=== PATIENT | male | born 1945 | race Caucasian/White ===

== ENCOUNTER 2023-08-17 07:24 | Outpatient (CLI) | payer MEDICARE, BC ==
[~2023-08-17 07:24] MED LIST: CARCD120C PO; CHOL2000 PO; COLE1TAB4 PO; COU2.5T PO; COU3T PO; DOXY-8 PO; LOP25T PO; OMEP-84 PO; PSYL0.524 PO
[2023-08-17 07:57] LABS: BASOPHILS % (AUTO) 0.7 % (0-1); EOSINOPHILS # (AUTO) 0.1 X10'3 (0-0.9); HEMATOCRIT 42.1 % (42.0-52.0); HEMOGLOBIN 14.3 g/dl (14.0-17.9); LYMPHOCYTES # (AUTO) 1.1 X10'3 (1.1-4.8); LYMPHOCYTES % (AUTO) 17.6 % (21-51); MEAN CORPUSCULAR HEMOGLOBIN 30.7 PG (27.0-31.0); MEAN CORPUSCULAR VOLUME 90.4 FL (78-98); MEAN PLATELET VOLUME 6.9 FL (7.4-10.4); MONOCYTES # (AUTO) 0.6 X10'3 (0-0.9); MONOCYTES % (AUTO) 10.1 % (2-12); NEUTROPHILS # (AUTO) 4.3 X10'3 (1.8-7.7); NEUTROPHILS % (AUTO) 69.6 % (42-75); PLATELET COUNT 217 X10'3 (140-440); RED BLOOD COUNT 4.66 X10'6 (4.70-6.10); RED CELL DISTRIBUTION WIDTH 14.7 % (11.5-14.5); WHITE BLOOD COUNT 6.1 X10'3 (4.5-11.0)
[2023-08-17 08:16] LABS: ALANINE AMINOTRANSFERASE 16 U/L (12-78); ALBUMIN 3.7 G/DL (3.4-5.0); ALBUMIN/GLOBULIN RATIO 0.9 (1.1-1.5); ALKALINE PHOSPHATASE 86 IU/L (46-116); ANION GAP 10 (8-16); ASPARTATE AMINO TRANSFERASE 21 U/L (10-37); BILIRUBIN,TOTAL 0.6 MG/DL (0.1-1.0); BLOOD UREA NITROGEN 13 MG/DL (7-18); BUN/CREATININE RATIO 14.1 (10.0-20.0); CALCIUM 8.9 MG/DL (8.5-10.1); CHLORIDE 104 MMOL/L (99-107); CREATININE 0.92 MG/DL (0.60-1.10); GLUCOSE 109 MG/DL (70-104); POTASSIUM 3.5 MMOL/L (3.5-5.1); SODIUM 142 MMOL/L (135-145); TOTAL CARBON DIOXIDE 27.8 MMOL/L (24-32); TOTAL PROTEIN 7.6 G/DL (6.4-8.2); eGFR 80 ML/MIN
[2023-08-17 08:32] LABS: APTT 26 SECONDS (22-32); INR 1.1 INR; PROTHROMBIN TIME 11.4 SECONDS (9.0-12.0)
[2023-08-17] MEDS ORDERED: iohexol 350MG/ML 100ml bottle IV ONE (08:46)
== END 2023-08-17 23:59 | disposition home or self-care (01) ==
LOC: RAD 07:24
PROVIDERS: ATTEND Student in an Organized Health Care Education/Training Program
DX: I48.91 Unspecified atrial fibrillation (principal); I48.92 Unspecified atrial flutter; I25.10 Atherosclerotic heart disease of native coronary artery without angina pectoris
CPT/HCPCS: 36415; 75572; 80053; 85025; 85610; 85730; J3490; Q9967

== ENCOUNTER 2024-02-01 06:25 | Inpatient (IN) | payer MEDICARE, BC ==
[2024-01-24 10:07] LABS: EOSINOPHILS # (AUTO) 0.1 X10'3 (0-0.9); LYMPHOCYTES # (AUTO) 1.6 X10'3 (1.1-4.8); MONOCYTES # (AUTO) 0.6 X10'3 (0-0.9); PRE OP WHITE BLOOD COUNT 6.2 10'3 (4.8-10.8); RED CELL DISTRIBUTION WIDTH 14.1 % (11.5-14.5)
[2024-01-24 10:09] LABS: BASOPHILS % (AUTO) 0.6 % (0-1); LYMPHOCYTES % (AUTO) 25.9 % (21-51); MEAN CORPUSCULAR HEMOGLOBIN 32.1 PG (27.0-31.0); MEAN CORPUSCULAR HGB CONC 34.1 g/dL (33.0-36.5); MEAN CORPUSCULAR VOLUME 94.3 FL (78-98); MEAN PLATELET VOLUME 7.1 FL (7.4-10.4); MONOCYTES % (AUTO) 9.8 % (2-12); NEUTROPHILS # (AUTO) 3.9 X10'3 (1.8-7.7); NEUTROPHILS % (AUTO) 62.7 % (42-75); PRE OP HEMATOCRIT 44.7 % (42.0-52.0); PRE OP HEMOGLOBIN 15.2 g/dL (14.0-17.9); PRE OP PLATELET COUNT 224 X10'3 (140-440); RED BLOOD COUNT 4.74 X10'6 (4.70-6.10)
[2024-01-24 10:10] LABS: BILIRUBIN,URINE NEGATIVE (Neg); CLARITY,URINE SLIGHTLY CLOUDY (Clear); COLOR,URINE STRAW (Yellow); GLUCOSE, URINE NEGATIVE (Neg); KETONES,URINE NEGATIVE (Neg); LEUKOCYTE ESTERASE ,URINE MODERATE (Neg); NITRITES, URINE NEGATIVE (Neg); OCCULT BLOOD,URINE TRACE-INTACT (Neg); PH,URINE 6.5 (4.8-8.0); PROTEIN,URINE NEGATIVE (Neg); UROBILINOGEN,URINE 0.2 E.U/dL (0.2-1.0)
[2024-01-24 10:19] LABS: UA COLLECTION TYPE CLN CATCH MIDSTREAM
[2024-01-24 10:20] LABS: SQUAMOUS EPITHELIAL CELL,UR FEW /LPF (FEW)
[2024-01-24 10:21] LABS: BACTERIA,URINE 1+ /HPF (Neg); RBC,URINE 0-2 /HPF (0-2); WBC CLUMPS,URINE MANY /HPF (NEGATIVE)
[2024-01-24 10:25] LABS: PRE OP INR 1.2 INR
[2024-01-24 10:42] LABS: ALBUMIN 3.9 G/DL (3.4-5.0); ALBUMIN/GLOBULIN RATIO 0.9 (1.1-1.5); ALKALINE PHOSPHATASE 87 IU/L (46-116); BLOOD UREA NITROGEN 9 MG/DL (7-18); BUN/CREATININE RATIO 11.3 (10.0-20.0); CALCIUM 8.9 MG/DL (8.5-10.1); CHLORIDE 104 MMOL/L (99-107); PRE OP ALT 15 U/L (30-65); PRE OP ANION GAP 7 (8-16); PRE OP AST 14 U/L (10-37); PRE OP BILIRUB, TOTAL 0.7 MG/DL (0.0-1.0); PRE OP GLUCOSE 100 MG/DL (70-104); PRE OP SODIUM 142 MMOL/L (135-145); TOTAL CARBON DIOXIDE 30.6 MMOL/L (24-32); TOTAL PROTEIN 8.1 G/DL (6.4-8.2); eGFR > 90 ML/MIN
[2024-01-24 10:45] LABS: PRE OP POTASSIUM 3.3 MMOL/L (3.4-5.1)
[2024-02-01] VITALS (37 sets, daily range): BP systolic 128–168; BP diastolic 41–107; PULSE 16–142; RESP 8–16; TEMP 97.4–99; O2SAT 91–99
[~2024-02-01] VITALS: Ht 185.4 cm; Wt 102.1 kg
[~2024-02-01 06:25] MED LIST changes: +APIX5TAB3 PO; +BACL20TA PO; -CARCD120C PO; -CHOL2000 PO; +CHOL20002 PO; -COLE1TAB4 PO; -COU2.5T PO; -COU3T PO; +CYAN100097 PO; +DILT240C90 PO; -DOXY-8 PO; -LOP25T PO; +LOSA-416 PO; -OMEP-84 PO; +PANT20TA18 PO; +PRAV40TA3 PO; -PSYL0.524 PO; +cefazolin 2gm/D5W 100mL 100 ML IV ONE; +ondansetron/PF 4mg/2ml inj IV PRN
[2024-02-01 07:23] LABS: ISTAT ANION GAP 11 (8-12); ISTAT BUN 9 mg/dL (7-18); ISTAT CL 103 mmol/L (99-107); ISTAT CREATININE 0.7 mg/dL (0.8-1.3); ISTAT GLUCOSE 102 mg/dL (70-104); ISTAT HGB 15.3 g/dl (14.0-17.9); ISTAT Hct 45 %PCV (42-52); ISTAT IONIZED CALCIUM 1.17 mmol/L (1.03-1.32); ISTAT K 3.3 mmol/L (3.5-5.1); ISTAT NA 142 mmol/L (135-145); ISTAT TOTAL CO2 28 mmol/L (24-32); ISTAT eGFR > 90 ML/MIN; POC BUN/CREATININE RATIO 12.9 (5.4-32.0)
[2024-02-01] MEDS: ringers solution, lacted 1,000 ML IV SCH ×2 (07:23→10:19)
[2024-02-01] MEDS: vancomycin 1,500 MG in NS 300ml IV soln IV ONE (07:24)
[2024-02-01] MEDS: famotidine 20mg tablet PO ONE (07:30)
[2024-02-01] MEDS ORDERED: meperidine/PF 25mg/ml syringe IV PRN ×3 (08:00)
[2024-02-01] MEDS ORDERED: morphine 4 MG/ML inj SYRINge IV PRN (08:00)
[2024-02-01] MEDS ORDERED: proCHLORperazine 10 MG/2 ml inj IV PRN ×2 (08:00→09:45)
[2024-02-01] MEDS ORDERED: morphine 2 MG/ML inj. syringe IV PRN (08:00)
[2024-02-01] MEDS ORDERED: ondansetron/PF 4mg/2ml inj IV PRN ×2 (08:00→09:45)
[2024-02-01] MEDS ORDERED: LIDOcaine 1% (10mg/ml) 2ml vial ONE (08:12)
[2024-02-01] MEDS ORDERED: iohexol 350MG/ML 100ml bottle IV ONE (08:36)
[2024-02-01] MEDS ORDERED: LIDOcaine 1% 30ml preserv. free vial ONE (08:36)
[2024-02-01] MEDS ORDERED: propofol inj 20 ML IV ONE (08:40)
[2024-02-01] MEDS ORDERED: fentaNYL/PF 50MCG/1 ML 2ML syringe ONE (08:40)
[2024-02-01] MEDS ORDERED: midazolam 1 mg/ML 2ml injection ONE (08:40)
[2024-02-01] MEDS ORDERED: sevoflurane 250ml liquid IH ONE (08:41)
[2024-02-01] MEDS ORDERED: heparin 1,000unit/ml 10ml vial 10 ML ONE (08:56)
[2024-02-01] MEDS ORDERED: rocuronium 10mg/ml inj IV ONE (08:56)
[2024-02-01] MEDS ORDERED: dexamethasone sod phosphate 4mg/ml inj. ONE (09:06)
[2024-02-01] MEDS ORDERED: ondansetron/PF 4mg/2ml inj ONE (09:28)
[2024-02-01] MEDS ORDERED: neostigmine methylsulfate 1 MG/ML 10ml vial ONE (09:33)
[2024-02-01] MEDS ORDERED: glycopyrrolate 0.2mg/ml inj ONE (09:34)
[2024-02-01] MEDS ORDERED: potassium Cl 20 mEq SR tablet PO PRN (09:45)
[2024-02-01] MEDS ORDERED: docusate sod 100mg capsule PO PRN (09:45)
[2024-02-01] MEDS ORDERED: potassium CL 10mEq/100ml bag 100 ML IV PRN (09:45)
[2024-02-01] MEDS ORDERED: potassium Cl 20mEq/100mL bag 100 ML IV PRN (09:45)
[2024-02-01] MEDS ORDERED: potassium Cl 40MEQ/270ML bag 250 ML IV PRN (09:45)
[2024-02-01] MEDS ORDERED: magnesium 4gm in 100ml NS 100 ML IV PRN (09:45)
[2024-02-01] MEDS ORDERED: pantoprazole 40mg Tablet.DR PO PRN (09:45)
[2024-02-01] MEDS ORDERED: magnesium 2GM in 50ml NS 50 ML IV PRN (09:45)
[2024-02-01] MEDS ORDERED: diphenhydrAMINE 25mg capsule PO PRN (09:45)
[2024-02-01] MEDS ORDERED: ALPRAZolam 0.25mg tablet PO PRN (09:45)
[2024-02-01] MEDS: hydrALAZINE 20mg/ml inj. IV PRN (11:23)
[2024-02-01] MEDS: sod chloride 0.9% 10ml flush syringe IV SCH (16:00)
[2024-02-01] MEDS: diltiazem SR 60mg capsule (twice daily) PO SCH (16:12)
[2024-02-01] MEDS: diltiazem 30mg tablet PO ONE (17:00)
[2024-02-01] MEDS: labetalol 20mg/4ml (5mg/ml) syringe IV PRN (17:27)
[2024-02-01] MEDS: potassium Cl 40MEQ/1/2NS 520ml 520 ML IV PRN (19:00)
[2024-02-01] MEDS: normal saline 1000ml 1,000 ML IV SCH (19:45)
[2024-02-01] MEDS: apixaban 5mg tablet PO SCH (20:11)
[2024-02-01] MEDS: baclofen 10mg tablet PO SCH (20:12)
[2024-02-01] MEDS: losartan 50mg tablet PO SCH (20:12)
[2024-02-01] MEDS: pravastatin 40mg tablet PO SCH (20:13)
[2024-02-01] MEDS: acetaminophen 325mg tablet PO PRN (20:31)
[2024-02-02 02:00] VITALS: BP 153/86; PULSE 92; RESP 16; TEMP 97.4; O2SAT 95
[2024-02-02 06:58] LABS: BASOPHILS % (AUTO) 0.2 % (0-1); EOSINOPHILS % (AUTO) 0 % (0-6); HEMATOCRIT 43.2 % (42.0-52.0); HEMOGLOBIN 14.4 g/dl (14.0-17.9); LYMPHOCYTES # (AUTO) 0.8 X10'3 (1.1-4.8); LYMPHOCYTES % (AUTO) 5.9 % (21-51); MEAN CORPUSCULAR HEMOGLOBIN 31.5 PG (27.0-31.0); MEAN CORPUSCULAR HGB CONC 33.3 g/dL (33.0-36.5); MEAN CORPUSCULAR VOLUME 94.4 FL (78-98); MEAN PLATELET VOLUME 7.6 FL (7.4-10.4); MONOCYTES # (AUTO) 0.6 X10'3 (0-0.9); MONOCYTES % (AUTO) 4.8 % (2-12); NEUTROPHILS # (AUTO) 11.5 X10'3 (1.8-7.7); NEUTROPHILS % (AUTO) 89.1 % (42-75); PLATELET COUNT 205 X10'3 (140-440); RED BLOOD COUNT 4.58 X10'6 (4.70-6.10); RED CELL DISTRIBUTION WIDTH 14.1 % (11.5-14.5); WHITE BLOOD COUNT 12.9 X10'3 (4.5-11.0)
[2024-02-02 06:59] LABS: INR 1.2 INR; PROTHROMBIN TIME 12.5 SECONDS (9.0-12.0)
[2024-02-02 07:00] VITALS: BP 135/79; PULSE 96; RESP 21; TEMP 98.4; O2SAT 97
[2024-02-02 07:14] LABS: ALANINE AMINOTRANSFERASE 12 U/L (12-78); ALBUMIN 3.2 G/DL (3.4-5.0); ALBUMIN/GLOBULIN RATIO 0.9 (1.1-1.5); ALKALINE PHOSPHATASE 75 IU/L (46-116); ANION GAP 6 (8-16); ASPARTATE AMINO TRANSFERASE 14 U/L (10-37); BILIRUBIN,TOTAL 0.6 MG/DL (0.1-1.0); BLOOD UREA NITROGEN 14 MG/DL (7-18); BUN/CREATININE RATIO 17.1 (10.0-20.0); CALCIUM 8.4 MG/DL (8.5-10.1); CHLORIDE 105 MMOL/L (99-107); CREATININE 0.82 MG/DL (0.60-1.10); GLUCOSE 124 MG/DL (70-104); MAGNESIUM 2.1 MG/DL (1.5-2.4); POTASSIUM 4.1 MMOL/L (3.5-5.1); PRO BRAIN NATRIURETIC PEPTIDE 565 PG/ML (0-450); SODIUM 138 MMOL/L (135-145); TOTAL CARBON DIOXIDE 27.3 MMOL/L (24-32); TOTAL PROTEIN 6.8 G/DL (6.4-8.2); eCRCL 87 ML/MIN; eGFR > 90 ML/MIN
[2024-02-02 08:00] VITALS: RESP 16; O2SAT 96
[2024-02-02] MEDS: pantoprazole 40mg Tablet.DR PO SCH (09:28)
[2024-02-02] MEDS: cholecalciferol (vitamin D3) 1,000 unit (25mcg) tablet PO SCH (09:28)
[2024-02-02] MEDS: cyanocobalamin 500mcg tablet PO SCH (10:36)
[2024-02-02 11:00] VITALS: BP 151/74; PULSE 64; RESP 16; TEMP 97.9; O2SAT 97
== END 2024-02-02 18:08 | disposition home or self-care (01) | DRG 274 ==
LOC: PAS IN 06:25 → PCU 3S 18:00
PROVIDERS: ADMIT Student in an Organized Health Care Education/Training Program; ATTEND Student in an Organized Health Care Education/Training Program
PROC: B24BZZ4 Ultrasonography of Heart with Aorta, Transesophageal (ICD-10-PCS; 2024-02-01)
PROC: 03HY32Z Insertion of Monitoring Device into Upper Artery, Percutaneous Approach (ICD-10-PCS; 2024-02-01)
PROC: 02L73DK Occlusion of Left Atrial Appendage with Intraluminal Device, Percutaneous Approach (ICD-10-PCS; principal; 2024-02-01 08:41)
DX: I48.91 Unspecified atrial fibrillation (principal); Z00.6 Encounter for examination for normal comparison and control in clinical research program; I71.9 Aortic aneurysm of unspecified site, without rupture; G47.30 Sleep apnea, unspecified; E87.5 Hyperkalemia; I10 Essential (primary) hypertension; E78.5 Hyperlipidemia, unspecified; Z79.01 Long term (current) use of anticoagulants
CPT/HCPCS: 33340; 36415; 71045; 71046; 76937; 80047; 80053; 81001; 83735; 83880; 85025; 85347; 85610; 85730; 86885; 86900; 86901; 86920; 87081; 87088; 93005; 93308; 93312; 93325; A4618; A6258; A6449; C1758; C1760; C1889; C1893; G0378; J0360; J0690; J1100; J1644; J2250; J2405; J2704; J2710; J3010; J3370; J3480; J3490; J7030; J7040; J7120; Q9967

== ENCOUNTER 2024-03-12 12:09 | Day surgery (SDC) | payer MEDICARE, BC ==
[2024-03-12] VITALS (14 sets, daily range): BP systolic 116–190; BP diastolic 70–111; PULSE 65–120; RESP 14–20; TEMP 98; O2SAT 66–99
[~2024-03-12] VITALS: Ht 185.4 cm; Wt 102.9 kg
[~2024-03-12 12:09] MED LIST changes: -cefazolin 2gm/D5W 100mL 100 ML IV ONE; -ondansetron/PF 4mg/2ml inj IV PRN
[2024-03-12 13:48] LABS: BASOPHILS % (AUTO) 0.4 % (0-1); EOSINOPHILS % (AUTO) 0.7 % (0-6); HEMOGLOBIN 13.2 g/dl (14.0-17.9); LYMPHOCYTES # (AUTO) 0.9 X10'3 (1.1-4.8); LYMPHOCYTES % (AUTO) 14.2 % (21-51); MEAN CORPUSCULAR HEMOGLOBIN 31.8 PG (27.0-31.0); MEAN CORPUSCULAR HGB CONC 33.8 g/dL (33.0-36.5); MEAN PLATELET VOLUME 7.1 FL (7.4-10.4); MONOCYTES # (AUTO) 0.5 X10'3 (0-0.9); MONOCYTES % (AUTO) 7.7 % (2-12); NEUTROPHILS # (AUTO) 5.1 X10'3 (1.8-7.7); PLATELET COUNT 191 X10'3 (140-440); RED BLOOD COUNT 4.15 X10'6 (4.70-6.10); RED CELL DISTRIBUTION WIDTH 13.3 % (11.5-14.5); WHITE BLOOD COUNT 6.6 X10'3 (4.5-11.0)
[2024-03-12 13:57] LABS: ALBUMIN 3.2 G/DL (3.4-5.0); ANION GAP 8 (8-16); BLOOD UREA NITROGEN 7 MG/DL (7-18); BUN/CREATININE RATIO 10.8 (10.0-20.0); CHLORIDE 110 MMOL/L (99-107); CREATININE 0.65 MG/DL (0.60-1.10); GLUCOSE 90 MG/DL (70-104); POTASSIUM 3.1 MMOL/L (3.5-5.1); SODIUM 143 MMOL/L (135-145); TOTAL CARBON DIOXIDE 24.6 MMOL/L (24-32); eCRCL 109 ML/MIN; eGFR > 90 ML/MIN
[2024-03-12 14:01] LABS: APTT 29 SECONDS (22-32); INR 1.2 INR
[2024-03-12] MEDS: normal saline 1000ml 1,000 ML IV SCH (14:30)
[2024-03-12] MEDS: fentaNYL/PF 50MCG/1 ML 2ML syringe IV ONE (15:31)
[2024-03-12] MEDS: MIDAZolam 1mg/ml 10ml vial IV ONE (15:31)
== END 2024-03-12 16:50 | disposition home or self-care (01) ==
LOC: SSTAY O 12:09 → EDSTATUS 13:30 → SSTAY O 16:50
PROVIDERS: ATTEND Student in an Organized Health Care Education/Training Program
DX: I48.91 Unspecified atrial fibrillation (principal); I35.2 Nonrheumatic aortic (valve) stenosis with insufficiency; I71.20 Thoracic aortic aneurysm, without rupture, unspecified; I31.39 Other pericardial effusion (noninflammatory); I11.9 Hypertensive heart disease without heart failure; E78.00 Pure hypercholesterolemia, unspecified; G47.33 Obstructive sleep apnea (adult) (pediatric); Z87.440 Personal history of urinary (tract) infections; Z79.01 Long term (current) use of anticoagulants; Z79.899 Other long term (current) drug therapy; Z98.890 Other specified postprocedural states
CPT/HCPCS: 36415; 80048; 85025; 85610; 85730; 93325; C8925; J2250; J3010; J7030; 93312

== ENCOUNTER 2024-10-23 07:14 | Day surgery (SDC) | payer MEDICARE, BC ==
[2024-10-16 13:46] LABS: BASOPHILS % (AUTO) 0.6 % (0-1); EOSINOPHILS # (AUTO) 0.2 X10'3 (0-0.9); EOSINOPHILS % (AUTO) 2.8 % (0-6); LYMPHOCYTES # (AUTO) 1.1 X10'3 (1.1-4.8); LYMPHOCYTES % (AUTO) 16.1 % (21-51); MEAN CORPUSCULAR HEMOGLOBIN 31.3 PG (27.0-31.0); MEAN CORPUSCULAR HGB CONC 33.9 g/dL (33.0-36.5); MEAN CORPUSCULAR VOLUME 92.2 FL (78-98); MONOCYTES # (AUTO) 0.6 X10'3 (0-0.9); MONOCYTES % (AUTO) 8.6 % (2-12); NEUTROPHILS # (AUTO) 5.1 X10'3 (1.8-7.7); NEUTROPHILS % (AUTO) 71.9 % (42-75); PRE OP HEMATOCRIT 41.5 % (42.0-52.0); PRE OP HEMOGLOBIN 14.1 g/dL (14.0-17.9); PRE OP PLATELET COUNT 255 X10'3 (140-440); PRE OP WHITE BLOOD COUNT 7.2 10'3 (4.8-10.8); RED CELL DISTRIBUTION WIDTH 14.1 % (11.5-14.5)
[2024-10-16 13:55] LABS: ALBUMIN/GLOBULIN RATIO 0.9 (1.1-1.5); ALKALINE PHOSPHATASE 89 IU/L (46-116); BLOOD UREA NITROGEN 11 MG/DL (7-18); BUN/CREATININE RATIO 13.9 (10.0-20.0); CALCIUM 9.3 MG/DL (8.5-10.1); CHLORIDE 106 MMOL/L (99-107); CREATININE 0.79 MG/DL (0.60-1.10); PRE OP ALT 19 U/L (30-65); PRE OP ANION GAP 7 (8-16); PRE OP AST 13 U/L (10-37); PRE OP BILIRUB, TOTAL 0.8 MG/DL (0.0-1.0); PRE OP GLUCOSE 97 MG/DL (70-104); PRE OP SODIUM 142 MMOL/L (135-145); TOTAL CARBON DIOXIDE 29.3 MMOL/L (24-32); TOTAL PROTEIN 8.3 G/DL (6.4-8.2); eGFR > 90 ML/MIN
[~2024-10-23] VITALS: Ht 185.4 cm; Wt 108.9 kg
[2024-10-23] VITALS (10 sets, daily range): BP systolic 100–145; BP diastolic 50–83; PULSE 40–61; RESP 11–19; TEMP 97.8; O2SAT 92–98
[~2024-10-23 07:14] MED LIST changes: -APIX5TAB3 PO; +ASPI-1397 PO
[2024-10-23] MEDS: famotidine 20mg tablet PO ONE (07:57)
[2024-10-23] MEDS: ringers solution, lacted 1,000 ML IV SCH (07:57)
[2024-10-23] MEDS ORDERED: iohexol 300 MG/1 ML 50ml polymer ONE (09:23)
[2024-10-23] MEDS ORDERED: iohexol 350MG/ML 100ml bottle IV ONE (09:23)
[2024-10-23] MEDS ORDERED: sevoflurane 250ml liquid IH ONE (09:32)
[2024-10-23] MEDS ORDERED: fentaNYL/PF 50MCG/1 ML 2ML syringe ONE (09:39)
[2024-10-23] MEDS: ceFAZolin 2gm in dextrose, iso 50 ML IV ONE (09:40)
[2024-10-23] MEDS ORDERED: meperidine/PF 25mg/ml syringe IV PRN ×2 (09:50)
[2024-10-23] MEDS ORDERED: proCHLORperazine 10 MG/2 ml inj IV PRN (09:50)
[2024-10-23] MEDS ORDERED: labetalol 20mg/4ml (5mg/ml) syringe IV PRN (09:50)
[2024-10-23] MEDS ORDERED: ringers solution, lacted 1,000 ML IV SCH (09:50)
[2024-10-23] MEDS ORDERED: morphine 2 MG/ML inj. syringe IV PRN (09:50)
[2024-10-23] MEDS ORDERED: ondansetron/PF 4mg/2ml inj IV PRN (09:50)
[2024-10-23] MEDS ORDERED: hydrALAZINE 20mg/ml inj. IV PRN (09:50)
[2024-10-23] MEDS ORDERED: propofol inj 20 ML IV ONE (09:53)
[2024-10-23] MEDS ORDERED: midazolam 1 mg/ML 2ml injection ONE (09:53)
[2024-10-23] MEDS ORDERED: LIDOcaine 2% (20mg/ml) 5ml vial ONE (09:53)
[2024-10-23] MEDS ORDERED: ondansetron/PF 4mg/2ml inj ONE (09:54)
[2024-10-23] MEDS ORDERED: dexamethasone sod phosphate 4mg/ml inj. ONE (09:54)
[2024-10-23] MEDS ORDERED: BUPIVAcaine 2.5mg/ml inj 50ml vial (contains preservative) ONE (11:30)
[2024-10-23] MEDS: BUPIVAcaine/PF 2.5 mg/ml (0.25%) 30ml vial IJ ONE (12:05)
[2024-10-23] MEDS: meperidine/PF 25mg/ml syringe IV PRN (12:22)
[2024-10-23] MEDS: acetaminophen 1,000mg/100ml IV 100 ML IV PRN (12:25)
[2024-10-23] MEDS: morphine 4 MG/ML inj SYRINge IV PRN (12:31)
== END 2024-10-23 12:57 | disposition home or self-care (01) ==
LOC: PAS 07:14
PROVIDERS: ATTEND Urology
DX: N35.819 Other urethral stricture, male, unspecified site (principal); I10 Essential (primary) hypertension; K21.9 Gastro-esophageal reflux disease without esophagitis; E78.5 Hyperlipidemia, unspecified; I48.91 Unspecified atrial fibrillation; G47.33 Obstructive sleep apnea (adult) (pediatric); Z90.49 Acquired absence of other specified parts of digestive tract; Z85.46 Personal history of malignant neoplasm of prostate; Z87.440 Personal history of urinary (tract) infections; Z98.890 Other specified postprocedural states; Z79.82 Long term (current) use of aspirin; Z79.899 Other long term (current) drug therapy; Z88.8 Allergy status to other drugs, medicaments and biological substances; Z80.3 Family history of malignant neoplasm of breast; Z80.42 Family history of malignant neoplasm of prostate
CPT/HCPCS: 36415; 51040; 80053; 82948; 85025; A4618; A6402; J0131; J0690; J1100; J2003; J2175; J2250; J2270; J2405; J2704; J3010; J3490; J7030; J7120; Z7506; Z7508; Z7512; Z7610; A6449; C1729; Q9967